=== PATIENT | female | born 1965 | race Caucasian/White ===

== ENCOUNTER 2025-02-15 23:07 | Inpatient (IN) | payer OTHER, MEDICAID ==
[2025-02-16] MEDS ORDERED: Ipratropium Bromide 2.5 ml Neb NEB PRN (01:04)
[2025-02-16] MEDS ORDERED: Glucagon 1 MG/ML KIT IM PRN (01:06)
[2025-02-16] MEDS ORDERED: Dextrose 50% Abboject 50 ML SYRINGE SLOW IVP PRN (01:06)
[2025-02-16] MEDS ORDERED: Senokot S 8.6-50 MG TAB PO PRN (01:06)
[2025-02-16 01:26] VITALS: BMI 26.4
[2025-02-16] MEDS: cefTRIAXone\\ROCEPHIN 1 GM in Sodium Chloride 0.9% 100 ML IVPB SCH (01:59)
[2025-02-16] MEDS: Azithromycin 500 MG in Sodium Chloride 0.9% 250 ML 250 ML IVPB SCH (02:08)
[2025-02-16 06:14] LABS: #Basophils Less than 0.03 10x3/uL (0.0-0.2); #Eosinophils Less than 0.03 10x3/uL (0.0-0.5); #Monocytes 0.11 10x3/uL (0.0-1.1); #Neutrophils 9.16 10x3/uL (1.5-8.4); %Basophils 0.1 % (0.0-2.0); %Eosinophils 0.0 % (0.0-6.0); %Lymphocytes 7.3 % (18.0-47.0); %Monocytes 1.1 % (0.0-10.0); %Neutrophils 91.0 % (40.0-75.0); Hematocrit 44.9 % (34.9-44.5); Hemoglobin 13.9 g/dL (12.0-15.5); Mean Corpuscular Hemoglobin 27.0 pg (27.0-33.0); Mean Corpuscular Volume 87.2 fL (81.6-98.3); Platelet Count 279 10x3/uL (150-450); Red Blood Cell (RBC) Count 5.15 10x6/uL (3.90-5.03); White Blood Cell (WBC) Count 10.07 10x3/uL (3.5-10.5)
[2025-02-16 06:17] LABS: Anion Gap 10 mmol/L (10-20); BUN (Urea Nitrogen) 17 mg/dL (9.8-20.1); Calc. Creatinine Clearance 87 mL/min (70-130); Calcium 9.0 mg/dL (7.8-10.44); Carbon Dioxide 26 mmol/L (23-31); Chloride 107 mmol/L (98-107); Glucose 224 mg/dL (80-115); Magnesium 2.2 mg/dL (1.6-2.6); Potassium 4.1 mmol/L (3.5-5.1); Sodium 139 mmol/L (136-145)
[2025-02-16] MEDS: PNEUMOC 20-VAL CONJ-DIP CRM/PF 0.5 ML SYRINGE IM ONE (07:21)
[2025-02-16] MEDS: FLU (Fluarix Triv) 25-26 (6MOS UP)/PF 45 MCG/0.5 ML Syringe IM ONE (07:21)
[2025-02-16] MEDS: Mometasone 200 MCG/Formoterol 5 MCG 60 PUFF INHALER INH SCH (07:54)
[2025-02-16] MEDS: Enoxaparin 40 MG (0.4 mL) SYRINGE SC SCH (09:24)
[2025-02-16] MEDS: predniSONE 20 MG TAB PO SCH (09:24)
[2025-02-16] MEDS: Albuterol 2.5 MG (3 mL) NEB NEB PRN (09:30)
[2025-02-16] MEDS: ALPRAZolam 0.25 MG TAB PO PRN (14:38)
[2025-02-16] MEDS: Guaifenesin DM 100-10/5 ML UDCUP PO PRN (20:10)
[2025-02-16] MEDS: Acetaminophen 325 MG TAB PO PRN (20:11)
[2025-02-17 12:28] VITALS: BP 135/66; TEMP 97.7
== END 2025-02-17 15:56 | disposition home or self-care (01) | DRG 189 ==
LOC: CSHTELE 02-16 00:28
PROVIDERS: ADMIT Family Medicine; ATTEND Hospitalist
PROC: 3E03329 Introduction of Other Anti-infective into Peripheral Vein, Percutaneous Approach (ICD-10-PCS; principal; 2025-02-16)
PROC: 5A09357 Assistance with Respiratory Ventilation, Less than 24 Consecutive Hours, Continuous Positive Airway Pressure (ICD-10-PCS; 2025-02-16)
DX: J96.01 Acute respiratory failure with hypoxia (principal); J44.1 Chronic obstructive pulmonary disease with (acute) exacerbation; G47.33 Obstructive sleep apnea (adult) (pediatric); R73.9 Hyperglycemia, unspecified; F17.200 Nicotine dependence, unspecified, uncomplicated; Z98.890 Other specified postprocedural states; Z90.49 Acquired absence of other specified parts of digestive tract; Z71.6 Tobacco abuse counseling; Z98.51 Tubal ligation status
CPT/HCPCS: 36416; 80048; 83036; 83735; 85025; 87070; 87205; 94640; 94660; 94664; 94760; 94762; J0456; J0696; J1650; J1815; J7050; J7512; J7611